=== PATIENT | female | born 1955 | race Caucasian/White ===

== ENCOUNTER → 2016-12-13 | Outpatient (CLI) | payer OTHER ==
[~2016-12-13] MED LIST: ALBU6.7H INH; ASPI1TAB69 PO; AUGM875T3 PO; CARV12.52 PO; ESOM1CAP6 PO; LISI-515 PO; NEXI20CA PO; OMEP20TA PO; TYLETAB34 PO; ZOCO40TA PO; ZYRT10TA PO
[2016-12-13 08:59] LABS: HEMATOCRIT 39.3 % (35.0-46.0); MEAN CELL VOLUME 92.2 FL (80.0-100.0); MEAN CORPUSCULAR HEMOGLOBIN 29.9 PG (27.0-34.0); MEAN CORPUSCULAR HGB CONC 32.4 % (32.0-36.0); PLATELET COUNT 250 TH/MM3 (150-450); RED BLOOD COUNT 4.26 MIL/MM3 (4.00-5.30); RED CELL DISTRIBUTION WIDTH 13.6 % (11.6-17.2); REVIEW FLAG FINAL; WHITE BLOOD COUNT 4.6 TH/MM3 (4.0-11.0)
[2016-12-13 09:10] LABS: BACTERIA, URINE OCC /hpf; BLOOD, URINE NEG (NEG); GLUCOSE,URINE NEG (NEG); KETONE, URINE NEG (NEG); MUCUS URINE FEW /lpf (OCC); NITRITE,URINE NEG (NEG); SQUAMOUS EPITHELIAL CELL URINE 1 /hpf (0-5); URINE COLOR YELLOW (YELLW/STRAW)
--- NOTE | 2016-12-13 09:20 | RADRPT ---
EXAM DATE/TIME: 12/13/2016 08:57 [place] COMPARISON: No previous studies available for comparison. INDICATIONS : Evaluate for pneumonia, pneumothorax or communicable disease. MEDICAL HISTORY : Hypertension. Hypercholesterolemia. SURGICAL HISTORY : None. ENCOUNTER: Initial ACUITY: 1 day PAIN SCORE: 0/10 LOCATION: Bilateral chest FINDINGS: The lungs are clear without infiltrate, nodule, or mass. There is no appreciable pleural effusion fo r technique. Heart and mediastinum are unremarkable. Degenerative changes and hypertrophic changes a re seen within the disc space and facets of the thoracic spine. CONCLUSION: No acute cardiopulmonary disease. Nella Olivo MD on December 13, 2016 at 9:17 Board Certified Radiologist. This report was verified electronically.
[2016-12-13 09:32] LABS: ALKALINE PHOSPHATASE 94 U/L (45-117); ALT (GPT) 24 U/L (10-53); ANION GAP 3 MEQ/L (5-15); AST (GOT) 22 U/L (15-37); BICARBONATE 31.3 MEQ/L (21.0-32.0); BLOOD UREA NITROGEN 20 MG/DL (7-18); CHLORIDE 106 MEQ/L (98-107); GLOMERULAR FILTRATION RATE 43 ML/MIN (>89); GLUCOSE,FASTING 117 MG/DL (74-99); POTASSIUM 4.2 MEQ/L (3.5-5.1); SODIUM (NA) 140 MEQ/L (136-145); TOTAL BILIRUBIN ADULT 0.4 MG/DL (0.2-1.0)
--- NOTE | 2016-12-13 16:05 | EKG ---
Date Performed: 12/13/2016 Time Performed: 08:20:46 PTAGE: 61 years EKG: Sinus rhythm LOW QRS VOLTAGE IN PRECORDIAL LEADS POSSIBLE ANTERIOR MYOCARDIAL INFARCTION, PROBABLY OLD BORDERLINE ECG NO PREVIOUS TRACING DOCTOR: Jeb Templeton Interpretating Date/Time 12/13/2016 16:03:12
== END ==
LOC: EDUNIT# 12-08 12:30 → CPRE 07:47
PROVIDERS: ATTEND Obstetrics & Gynecology
DX: N95.0 Postmenopausal bleeding (principal); N84.1 Polyp of cervix uteri; Z01.810 Encounter for preprocedural cardiovascular examination; Z01.818 Encounter for other preprocedural examination
CPT/HCPCS: 36415; 71020; 80053; 81001; 85027; 93005

== ENCOUNTER → 2016-12-15 | Day surgery (SDC) | payer OTHER ==
[~2016-12-15] VITALS: Ht 162.6 cm; Wt 93.7 kg
[~2016-12-15] MED LIST changes: +ACETAMINOPHEN/HYDROcodone 325 MG/5 MG TAB PO PRN; +CHLORHEXIDINE GLUCONATE 2 % 1 PACK (2 CLOTHS) TOPICAL PRN; +DO NOT ADM ANY ANTICOAGULANT DRUGS PRN; +FAMOTIDINE 20 MG/2 ML VIAL ONE; +INSULIN HUMAN REGULAR 1,000 UNITS/10 ML VIAL SQ PRN; +KETOROLAC TROMETHAMINE 60 MG/2 ML (IM) VIAL IM ONE; +LACTATED RINGER'S 1000 ML IV PRN; +METOPROLOL TARTRATE 25 MG TAB PO PRN; +MIDAZOLAM HCL 2 MG/2 ML VIAL ONE; +MORPHINE SULFATE 4 MG/ML INJ ONE; +ONDANSETRON HCL 4 MG/2 ML VIAL IV PUSH ONE; +ONDANSETRON HCL 4 MG/2 ML VIAL IV PUSH PRN; +POVIDONE IODINE 5% (ANTISEPSIS KIT) 4 APPLICATIONS EACH NARE PRN; +PROPOFOL 200 MG/20 ML AMP IV ONE; +SODIUM CHLORID 0.9% 500 ML IV PRN
[2016-12-15 11:14] VITALS: BP 122/79; PULSE 72; RESP 16; TEMP 98.4; O2SAT 98
[2016-12-15 15:47] VITALS: BP 125/73; PULSE 58; RESP 18; TEMP 97; O2SAT 98
--- NOTE | 2016-12-17 09:02 | MP ---
cc: JOSE MARTIN DUGAN DATE OF SURGERY 12/15/2016 PREOPERATIVE DIAGNOSIS Large uterine polyp extending out of the ectocervix POSTOPERATIVE DIAGNOSIS Large endometrial polyp PROCEDURE Examination under anesthesia, polypectomy with the MyoSure device, hysteroscopic exam, dilation and curettage. ANESTHESIA General SURGEON Rashid Dugan MD FINDINGS Examination under anesthesia, the vagina was atrophic, clean without lesions. There was a large to 1.2 cm x 1 cm polyp sticking out of the ectocervical polyp. The polyp was removed, measured 8 cm in length, hysteroscopic exam revealed a remaining stalk of that polyp which was completely removed with the MyoSure device. The remainder of the endometrium was atrophic. Both ostia were seen. No other lesions were seen in the endometrium. D&C revealed a small amount of tissue. COMPLICATIONS None COUNTS Correct ESTIMATED BLOOD LOSS Minimal CONDITION The patient tolerated the procedure well and went to the recovery room in good condition. PROCEDURE The patient was taken to the operating room, identified by name band and verbally given a general anesthetic, prepped and draped in usual sterile fashion for vaginal surgery. A time-out was taken and an examination under anesthesia with the above findings was carried out. A weighted speculum was placed in the vagina. The anterior lip of the cervix was grasped with a single-tooth tenaculum. Using the polyp forceps. The polyp was twisted and pulled and came out with a 7 cm stalk. The MyoSure device was readied and the hysteroscope was inserted into the endometrial cavity without difficulty. There was quite a bit of the stalk remaining and this was taken down with the MyoSure device. Once this had been accomplished, the remainder of the uterine cavity was carefully inspected and there were no lesions. At this point, we used a sharp #1 curette and briskly curetted all the remaining endometrium for pathologic evaluation. At this point, all instruments were removed. She tolerated the procedure well and went to the recovery room in good condition. MD REMIGIO Oropeza/DENI /2:23 PM /8:56 AM
== END | disposition home or self-care (01) ==
LOC: HSDC 10:07
PROVIDERS: ATTEND Obstetrics & Gynecology
DX: N84.0 Polyp of corpus uteri (principal); I10 Essential (primary) hypertension; J45.909 Unspecified asthma, uncomplicated
CPT/HCPCS: 00952; 58558; 88305; J1885; J2250; J2270; J2405; J3010